=== PATIENT | male | born 1955 | race Caucasian/White ===

== ENCOUNTER 2021-09-03 20:53 | Emergency (ER) | payer MEDICARE, MEDICAID, SELFPAY ==
[2021-09-03] VITALS (18 sets, daily range): BP systolic 101–136; BP diastolic 62–105; PULSE 0–92; RESP 11–35; TEMP 36.8; O2SAT 71–100
--- NOTE | ~2021-09-03 | CT_ITS ---
EXAMINATION: CT brain wo con DATE: 09/03/2021 21:20 INDICATION: Slurred speech TECHNIQUE: Computed tomography (CT) of the head was performed without intravenous contrast. The mA wa s adjusted according to patient size. Iterative reconstruction technique was employed. Exam dose: 60 5.33 mGy-cm total exam DLP. COMPARISON: None FINDINGS: Prominent bilateral vertebral artery and bilateral carotid siphon internal carotid artery c alcifications. There is nonspecific diminished attenuation of the cerebral white matter, likely due to chronic small vessel ischemic changes. No intracranial mass lesion or hemorrhage or cerebrovascular accident is evident. No midline shift or mass effect. There is cerebellar and cerebral volume loss. No subdural or epidural hematoma is detected. No fracture or bone destruction of the cranial vault. Included paranasal sinuses and mastoid air cells are unremarkable. IMPRESSION: Cerebral atherosclerosis and chronic small vessel ischemic changes of the cerebral white matter Cerebellar and cerebral volume loss No acute intracranial finding Reviewed, dictated and finalized at [facility] Reviewed, dictated and finalized at [facility].
--- NOTE | 2021-09-03 21:46 | ED.GENADULT ---
HPI - General Adult General Chief complaint: Neuro Symptoms/Deficit Stated complaint: PT FEELS LIKE HAVING SLURRED SPEECH Time Seen by Provider: 09/03/21 21:03 Source: patient and RN notes reviewed History of Present Illness HPI narrative: 66-year-old male presented to the emergency department from local correction for evaluation of slurred speech. Patient states for the day he has had slurred speech. penitentiary did not feel that the patient had any altered speech. Patient denies any other numbness or weakness. Patient denies any headache. Patient denies any other complaints. Patient states he feels that his speech is slurred. Patient is edentulous. Related Data Allergies Allergy/AdvReac Type Severity Reaction Status Date / Time vancomycin Allergy Severe Sweating Verified 03/26/16 22:22 povidone Allergy Intermediate BETADINE Verified 03/26/16 22:22 OINTMENT CAUSES BLISTERS ON THE SKIN meperidine Allergy Unknown Verified 03/26/16 22:22 MEPERIDINE HCL Allergy Unknown Uncoded 03/26/16 22:22 Review of Systems Review of Systems: CONSTITUTIONAL: Denies fever, chills, or sweats. EYES: Denies visual changes, redness, or discharge. ENT: Denies rhinorrhea, congestion, sore throat, or otalgia. CARDIOVASCULAR: Denies chest pain, palpitations, or edema. RESPIRATORY: Denies cough or dyspnea. GASTROINTESTINAL: Denies abdominal pain, nausea, vomiting, or diarrhea. GENITOURINARY: Denies dysuria or hematuria. SKIN: Denies rash or itching. MUSCULOSKELETAL: Denies back pain, joint pain, or myalgia. NEUROLOGIC: Feels that his speech is slurred PSYCHIATRIC: Denies anxiety or depression. Exam Narrative: APPEARANCE: Well appearing, no pain, no distress, well-nourished. HEAD: normocephalic, atraumatic. EYES: PERRLA/EOMI, conjunctivae clear. NOSE: Normal no drainage EARS:TMS clear with good light reflex. NECK: Supple. No adenopathy, no masses. RESPIRATORY: Airway patent, respirations nonlabored. Clear to auscultation bilaterally, no rales, rhonchi, wheezing. CARDIOVASCULAR: Regular rate and rhythm without murmurs rubs or gallops. ABDOMINAL: Soft, nontender, nondistended, normal bowel sounds MUSCULOSKELETAL: Moves all extremities. Strength/ROM intact, No edema, No calf tenderness. NEURO: Alert. Cranial nerves II through XII intact. Good coordination. No slurring of speech. Normal cranial nerve exam. normal tongue exam. SKIN: Warm, dry. Normal Color. Course Course Emergency Course: patient feels his speech is slurred. NH did not appreciate a speech change. Patient has a normal neuro exam. Patient was updated on the results of his labs and imaging. Vital Signs Vital signs: Vital Signs Temperature 98.3 F 09/03/21 20:57 Pulse Rate 89 09/03/21 20:57 Respiratory Rate 16 09/03/21 20:57 Blood Pressure 112/68 09/03/21 20:57 Pulse Oximetry 100 09/03/21 20:57 Temperature 98.3 F 09/03/21 20:57 Pulse Rate 94 09/04/21 04:31 Respiratory Rate 14 09/04/21 04:31 Blood Pressure 130/95 H 09/04/21 04:31 Pulse Oximetry 100 09/04/21 02:00 Medical Decision Making Vital Signs Vital Signs: Vital Signs Temperature 98.3 F 09/03/21 20:57 Pulse Rate 89 09/03/21 20:57 Respiratory Rate 16 09/03/21 20:57 Blood Pressure 112/68 09/03/21 20:57 Pulse Oximetry 100 09/03/21 20:57 Temperature 98.3 F 09/03/21 20:57 Pulse Rate 94 09/04/21 04:31 Respiratory Rate 14 09/04/21 04:31 Blood Pressure 130/95 H 09/04/21 04:31 Pulse Oximetry 100 09/04/21 02:00 Lab Data Lab results reviewed: Yes I reviewed the patient's lab results. Result diagrams: 09/03/21 22:45 09/03/21 22:45 Labs: Lab Results 09/03/21 09/03/21 Range/Units 22:45 22:45 WBC 7.1 (4.5-10.0) K/mm3 RBC 4.34 L (4.6-6.20) M/mm3 Hgb 14.5 (14.0-18.0) g/dL Hct 43.2 (42.0-52.0) % MCV 99.5 (80-100) fl MCH 33.4 (26-34) pg MCHC 33.6 (32-36) g/dl RDW 15.0 H
[2021-09-03 22:55] LABS: Basophils Absolute Auto 0.1 K/mm3 (0.0-0.1); Basophils Percent Auto 0.8 % (0.2-1.2); Eosinophils Absolute Auto 0.2 K/mm3 (0-0.3); Eosinophils Percent Auto 2.3 % (0-4.4); Hematocrit 43.2 % (42.0-52.0); Hemoglobin 14.5 g/dL (14.0-18.0); Immature Granulocyte Absolute 0.02 K/mm3 (0.00-0.031); Immature Granulocyte Percent A 0.3 % (0-0.5); Lymphocytes Percent Auto 11.3 % (18.3-44.2); Mean Corpuscular HGB Conc 33.6 g/dl (32-36); Mean Corpuscular Hemoglobin 33.4 pg (26-34); Mean Corpuscular Volume 99.5 fl (80-100); Mean Platelet Volume 8.3 fl (7.4-10.4); Monocytes Absolute Auto 0.4 K/mm3 (0.1-0.6); Monocytes Percent Auto 5.5 % (2.6-8.5); Neutrophils Absolute Auto 5.7 K/mm3 (1.3-6.7); Neutrophils Percent Auto 79.8 % (45.5-73.1); Platelet Count Result 160 k/mm3 (150-375); Red Blood Count 4.34 M/mm3 (4.6-6.20); White Blood Count 7.1 K/mm3 (4.5-10.0)
[2021-09-03 23:03] LABS: Alanine Aminotransferase 22 U/L (4-50); Albumin Level 4.3 g/dL (3.5-5.1); Alkaline Phosphatase 108 U/L (38-126); Anion Gap 6 mmol/L (8-16); Aspartate Amino Transferase 36 U/L (17-59); Bilirubin,Total 1.2 mg/dL (0.2-1.3); Blood Urea Nitrogen 18 mg/dL (9-20); Calcium 9.4 mg/dL (8.4-10.2); Carbon Dioxide 34 mmol/L (22-30); Chloride 98 mmol/L (98-107); Estimated CRCL calculation 82 ml/min; Estimated Glomerular Filt Rate > 60; Glucose 113 mg/dL (65-110); Potassium 3.5 mmol/L (3.4-5.0); Sodium 138 mmol/L (137-145)
[2021-09-04] VITALS (16 sets, daily range): BP systolic 104–161; BP diastolic 64–106; PULSE 0–145; RESP 11–33; O2SAT 92–100
== END 2021-09-04 05:26 ==
PROVIDERS: Emergency Provider Emergency Medicine
DX: R47.1 Dysarthria and anarthria (principal); I67.2 Cerebral atherosclerosis
CPT/HCPCS: 36415; 70450; 80053; 85025; 99284

== ENCOUNTER 2021-09-16 14:20 | Inpatient (IN) | payer MEDICARE, MEDICAID, SELFPAY ==
[2021-09-16] VITALS (9 sets, daily range): BP systolic 103–121; BP diastolic 71–73; PULSE 74–91; RESP 16–24; TEMP 36.4–36.7; O2SAT 94–100
--- NOTE | 2021-09-16 14:26 | ECG_ITS ---
Measurements Intervals [place] Rate: 69 P: OK: 0 QRS: 29 QRSD: 166 T: 165 QT: 486 QTc: 522 Interpretive Statements POSSIBLE ELECTRONIC VENTRICULAR PACEMAKER WITH INHIBITION BASELINE ARTIFACT NO FURTHER INTERPRETATION POSSIBLE NO PREVIOUS ECG AVAILABLE FOR COMPARISON Electronically Signed On 09-16-2021 15:55:11 CDT by Saulo Velazquez M.D.
--- NOTE | 2021-09-16 14:26 | ED.GENADULT ---
HPI - General Adult General Chief complaint: Unspecified Stated complaint: medical evaluation Time Seen by Provider: 09/16/21 14:26 Source: patient and EMS Mode of arrival: EMS Limitations: no limitations History of Present Illness HPI narrative: Patient is a 66-year-old male brought in by EMS from home after a relative called elder protective services, so he can be readmitted back to the skilled nursing he was discharged less than 24 hours ago according to EMS. Patient was discharged from [facility] rehab due to family request yesterday, some financial or losing his apartment as the reason they were requesting him to be discharged per EMS. When family realized that they are not able to take care of him since he is not able to stand up or walk due to the recent fracture of his femur and generalized weakness from deconditioning, they called elderly protective services so he can be brought back to the skilled nursing. Patient states that he was in another hospital 6 weeks ago, and they dropped him while transferring from bed to commode and that is why he broke his femur 6 weeks ago. Patient states that he was not a candidate for surgery repair of his broken femur. Patient will need medical clearance prior to getting admitted back to [place]. Patient complaining of generalized weakness. Related Data Allergies Allergy/AdvReac Type Severity Reaction Status Date / Time vancomycin Allergy Severe Sweating Verified 03/26/16 22:22 povidone Allergy Intermediate BETADINE Verified 03/26/16 22:22 OINTMENT CAUSES BLISTERS ON THE SKIN meperidine Allergy Unknown Verified 03/26/16 22:22 MEPERIDINE HCL Allergy Unknown Uncoded 03/26/16 22:22 Review of Systems Review of Systems: All systems reviewed & are unremarkable except as noted in HPI and below Constitutional: Constitutional: Denies body ache(s), Denies chills, Denies excessive sweating, Denies fatigue, Denies fever(s), Denies headache(s), Denies lethargy, Denies malaise, Reports weakness (Generalized) and Denies weight loss Eyes: Eyes: Denies blurry vision, Denies change in vision and Denies loss of vision ENT: Denies dizziness, Denies ear discharge, Denies headache(s), Denies lip swelling, Denies epistaxis, Denies nasal congestion, Denies neck pain, Denies throat swelling and Denies tongue swelling Cardiovascular: Cardiovascular: Denies chest pain, Denies chest pain at rest, Denies chest pain with activity, Denies diaphoresis, Denies rapid heart rate, Denies edema, Denies irregular heart rhythm, Denies lightheadedness, Denies palpitations, Denies dyspnea and Denies dyspnea on exertion Respiratory: Respiratory: Denies chest congestion, Denies cough, Denies hemoptysis, Denies dyspnea and Denies dyspnea on exertion Gastrointestinal: Gastrointestinal: Denies abdominal pain, Denies melena, Denies hematochezia, Denies diarrhea, Denies nausea, Denies vomiting and Denies hematemesis Musculoskeletal: Musculoskeletal: Reports limited range of motion Comments: Right lower extremity pain Neurologic: Denies Abnormal speech present, Denies abnormal gait, Denies confusion, Denies dizziness, Denies headache(s), Denies focal weakness, Denies loss of vision, Denies numbness, Denies Other visual disturbances, Denies Sensory deficit (Neuro) and Denies weakness Psychiatric: Psychiatric: Denies confusion, Denies depression, Denies auditory hallucinations, Denies homicidal ideation and Denies suicidal ideation Endocrine: Endocrine: Denies cold intolerance, Denies excessive sweating, Denies fatigue, Denies heat intolerance and Denies palpitations Hematologic/Lymphatic: Hematologic/Lymphatic: Denies easy bleeding and Denies easy bruising Allergic/Immunologic: Allergic/Immunologic: Denies lip swelling, Denies throat swelling and Denies tongue swelling PMFSH Comments Past medical history: Hypertension, atrial fib, multiple hip surgeries Family history: Unknown Social history: Non-smoker and
--- NOTE | 2021-09-16 14:27 | PC.NURSE ---
Care coordination made aware of pt per Dr. Powell request.
[2021-09-16 14:49] LABS: Basophils Absolute Auto 0.1 K/mm3 (0.0-0.1); Basophils Percent Auto 0.6 % (0.2-1.2); Eosinophils Absolute Auto 0.2 K/mm3 (0-0.3); Eosinophils Percent Auto 2.3 % (0-4.4); Hematocrit 36.4 % (42.0-52.0); Hemoglobin 12.5 g/dL (14.0-18.0); Immature Granulocyte Absolute 0.03 K/mm3 (0.00-0.031); Immature Granulocyte Percent A 0.3 % (0-0.5); Lymphocytes Absolute Auto 0.82 K/mm3 (0.9-3.2); Lymphocytes Percent Auto 8.8 % (18.3-44.2); Mean Corpuscular HGB Conc 34.3 g/dl (32-36); Mean Corpuscular Hemoglobin 32.3 pg (26-34); Mean Corpuscular Volume 94.1 fl (80-100); Mean Platelet Volume 8.3 fl (7.4-10.4); Monocytes Absolute Auto 0.4 K/mm3 (0.1-0.6); Monocytes Percent Auto 4.4 % (2.6-8.5); Neutrophils Absolute Auto 7.8 K/mm3 (1.3-6.7); Neutrophils Percent Auto 83.6 % (45.5-73.1); Platelet Count Result 212 k/mm3 (150-375); Red Blood Count 3.87 M/mm3 (4.6-6.20); Red Cell Distribution Width 13.8 % (11.5-14.5); White Blood Count 9.4 K/mm3 (4.5-10.0)
[2021-09-16] MEDS: LACTATED RINGERS 1,000 ML 999 ML IV CONT (14:50)
[2021-09-16 14:53] LABS: Add Urine Microscopic? YES; Appearance Urine Clear (Clear); Bilirubin Urine Negative (Negative); Blood Urine Negative (Negative); Color Urine Yellow (Yellow); Glucose Urine UA Negative (Negative); Ketones Urine Trace mg/dL (Negative); Leukocyte Esterase Ur Negative LEU/UL (Negative); Mucus Urine Rare /lpf; Nitrate Urine Negative (Negative); Protein Urine Negative (Negative); RBC Urine 0-2 /hpf (0-2); Specific Grav Ur 1.012 (1.001-1.035); Squamous Epithelial Cell Urine Rare /hpf (Few); Urobilinogen Urine Negative mg/dL (<2.0)
[2021-09-16 15:02] LABS: Anion Gap 11 mmol/L (8-16); Blood Urea Nitrogen 17 mg/dL (9-20); Calcium 8.4 mg/dL (8.4-10.2); Carbon Dioxide 32 mmol/L (22-30); Chloride 90 mmol/L (98-107); Estimated CRCL calculation 66 ml/min; Estimated Glomerular Filt Rate > 60; Glucose 129 mg/dL (65-110); Potassium 2.2 mmol/L (3.4-5.0); Sodium 133 mmol/L (137-145)
--- NOTE | 2021-09-16 15:20 | PC.NURSE ---
Care Coordination in room at this time discussing POC w/ pt.
--- NOTE | 2021-09-16 15:20 | PC.NURSE ---
Pt out of room and states has ride coming, wishes to sign out AMA. Told pt he must sign paperwork and IV needs to be removed prior to his leaving. Pt agreed and approached desk, this RN states to go back to room for IV removal. Pt ambulated back to room in no distress.
[2021-09-16] MEDS: POTASSIUM CHLORIDE 20 MEQ PACKET (FOR LIQUID) 40 MEQ PO (15:34)
--- NOTE | 2021-09-16 15:55 | PCCCNOTE ---
Called to ED by Dr. Powell for possible placement. Pt has MCR and Medicaid. Per pt: pt at [facility] for sepsis and sustained broken femur at hospital. Sent to [facility] on either August 31 or . Pt left on September 15 due to financial dispute on payment going forward. Pt found at home in soiled clothes brought to the hospital to be evaluated. Pt found to have low potassium and will be admitted. I spoke with Lona at [facility] and she stated that she tried to explain medicaid and medicare payment rules to pt and daughter; but they either did not understand or disagreed with the rules. Pt's daughter stated that she could take care of pt. Lona stated [facility] would be willing to take pt back if financial situation can be cleared up with everybody involved. Pt stated he would like to look into other SNF if possible and may be willing to give up check for 1 month then reevaluate. This did not seem set in stone.
[2021-09-16] MEDS: KCL 20 MEQ/D5/0.45% SOD CHL 1,000 ML 125 ML IV CONT (17:04)
--- NOTE | 2021-09-16 17:09 | PC.NURSE ---
Called dietary and ordered dinner tray for pt at this time.
--- NOTE | 2021-09-16 17:39 | PM.IMHP ---
H&P: HPI History of Present Illness Date/Time: Patient was placed observation status for expected length of stay less than 23 hours for management, will plan to re-evaluate tomorrow for improvement. 09/16/21 17:39 Chief Complaint: Medical evaluation Narrative: Mr. Dockery is a 66-year-old gentleman who was brought to the emergency room via EMS from his house after relatives I called other protective Services, ?so he could be readmitted back to the [place] [facility] he was discharged from approximately 24 hours ago?. The above statement was according to EMS. Per emergency room records patient was discharged from [facility] due to family's request yesterday. Per the emergency room records patient's family stated the patient was having some financial issues and he may be losing his apartment and so they requested he be discharged from extended care facility. Unfortunately the family realized they were not able to care for the patient since he cannot stand up or walk on his own secondary to a recent distal right femur fracture and generalized deconditioning they called elderly protective Services so he could go back to the [place] [facility]. Patient states ?a few weeks ago? he was at [facility] for MRSA sepsis and at that time something occurred and he had a fracture to his right distal femur. Patient states the femur fracture did occur at the hospital. Patient states that he has had multiple hip surgeries to bilateral hips and he has not been able to walk for quite some time. Patient states he does have occasional diarrhea and he has had some since being placed on antibiotics while at [facility]. Patient denies any diarrhea today. Patient denies any chest pain, shortness a breath, lightheadedness, dizziness, syncopal, or near syncopal episodes. Patient states he just has generalized weakness and inability to walk secondary to weakness to bilateral lower extremities. Upon evaluation in emergency room patient was noted to have a potassium of 2.2 and it was decided to keep patient overnight for replacement of his electrolytes and to assist with placement back to [facility] tomorrow possibly. Patient states he has known history of atrial fibrillation, hypertension, MRSA, sarcoidosis of the lungs, BPH, C difficile, permanent pacemaker, hernia repair, left total hip replacement, and multiple right hip surgeries. Review of Systems Review of Systems: A 12 point review of systems was completed patient all pertinent positive and negative per HPI the remainder are unremarkable. [facility] Past Medical History Medical History (Updated 09/16/21 @ 17:52 by Magnolia Canseco APRN) Atrial fibrillation Benign prostatic hyperplasia Clostridium difficile infection Hypertension MRSA bacteremia Sarcoidosis of lung Surgical History Surgical History (Updated 09/16/21 @ 17:49 by Magnolia Canseco APRN) History of hernia repair History of hip surgery Patient states multiple hip surgeries to the right hip History of total left hip replacement Pacemaker Social History Social History (Updated 09/16/21 @ 17:49 by Magnolia Canseco APRN) Smoking status: Never smoker Substance use: never Meds Home Medications and Allergies Allergies Allergy/AdvReac Type Severity Reaction Status Date / Time vancomycin Allergy Severe Sweating Verified 03/26/16 22:22 povidone Allergy Intermediate BETADINE Verified 03/26/16 22:22 OINTMENT CAUSES BLISTERS ON THE SKIN meperidine Allergy Unknown Verified 03/26/16 22:22 MEPERIDINE HCL Allergy Unknown Uncoded 03/26/16 22:22 Vital Signs Vital Signs - 24 hr 09/16/21 14:18 09/16/21 14:23 09/16/21 15:35 Temperature 36.7 C Pulse Rate 87 88 86 Respiratory Rate 20 24 H Blood Pressure 121/71 Pulse Oximetry 97 100 09/16/21 16:55 Temperature Pulse Rate 74 Respiratory Rate 16 Blood Pressure 113/73 Pulse Oximetry 98 Exam Narrative: Constitutional
[2021-09-16 19:27] LABS: Magnesium 1.5 mg/dL (1.6-2.3)
[2021-09-16 19:32] LABS: Anion Gap 8 mmol/L (8-16); Blood Urea Nitrogen 15 mg/dL (9-20); Calcium 8.2 mg/dL (8.4-10.2); Carbon Dioxide 33 mmol/L (22-30); Chloride 91 mmol/L (98-107); Estimated CRCL calculation 66 ml/min; Estimated Glomerular Filt Rate > 60; Glucose 163 mg/dL (65-110); Potassium 2.6 mmol/L (3.4-5.0); Sodium 132 mmol/L (137-145)
[2021-09-16] MEDS: POTASSIUM CHLORIDE 20 MEQ TABLET 40 MEQ PO (20:46)
[2021-09-16] MEDS: MAGNESIUM SULF 2 GM/WATER 50ML 2 GM/50 ML BAG IVPB (20:48)
[2021-09-16] MEDS: diphenhydrAMINE HCl CAP 25 MG CAPSULE PO (21:14)
[2021-09-16] MEDS: ACETAMINOPHEN 325 MG TABLET 650 MG PO (21:14)
[2021-09-17] VITALS (8 sets, daily range): BP systolic 96–122; BP diastolic 56–62; PULSE 64–92; RESP 16–20; TEMP 36.1–37.2; O2SAT 99–100; BMI 31.3
--- NOTE | 2021-09-17 00:28 | PCRCNOTE ---
Pt states that he is supposed to wear CPAP at home but currently does not due to the recall. Pt did not have his sleep study done here and does not know his settings. Pt placed on auto-titrating CPAP of 5-20 on RA.
[2021-09-17] MEDS: KCL 20MEQ/0.9% SOD CHL 1,000 ML 100 ML IV CONT (00:40)
[2021-09-17] MEDS: ACETAMINOPHEN 325 MG TABLET 650 MG PO (01:56)
[2021-09-17] MEDS: diphenhydrAMINE HCl CAP 25 MG CAPSULE PO (01:56)
[2021-09-17 05:20] LABS: Basophils Absolute Auto 0.1 K/mm3 (0.0-0.1); Basophils Percent Auto 0.9 % (0.2-1.2); Eosinophils Absolute Auto 0.4 K/mm3 (0-0.3); Eosinophils Percent Auto 4.7 % (0-4.4); Hematocrit 33.1 % (42.0-52.0); Hemoglobin 11.1 g/dL (14.0-18.0); Immature Granulocyte Absolute 0.02 K/mm3 (0.00-0.031); Immature Granulocyte Percent A 0.3 % (0-0.5); Lymphocytes Absolute Auto 0.49 K/mm3 (0.9-3.2); Lymphocytes Percent Auto 6.2 % (18.3-44.2); Mean Corpuscular HGB Conc 33.5 g/dl (32-36); Mean Corpuscular Hemoglobin 32.6 pg (26-34); Mean Corpuscular Volume 97.1 fl (80-100); Mean Platelet Volume 8.4 fl (7.4-10.4); Monocytes Absolute Auto 0.4 K/mm3 (0.1-0.6); Monocytes Percent Auto 5.2 % (2.6-8.5); Neutrophils Absolute Auto 6.6 K/mm3 (1.3-6.7); Neutrophils Percent Auto 82.7 % (45.5-73.1); Platelet Count Result 190 k/mm3 (150-375); Red Blood Count 3.41 M/mm3 (4.6-6.20); Red Cell Distribution Width 13.8 % (11.5-14.5); White Blood Count 7.9 K/mm3 (4.5-10.0)
[2021-09-17 05:35] LABS: Anion Gap 9 mmol/L (8-16); Blood Urea Nitrogen 16 mg/dL (9-20); Calcium 8.4 mg/dL (8.4-10.2); Carbon Dioxide 32 mmol/L (22-30); Chloride 92 mmol/L (98-107); Estimated CRCL calculation 53 ml/min; Estimated Glomerular Filt Rate 50; Glucose 106 mg/dL (65-110); Magnesium 1.9 mg/dL (1.6-2.3); Potassium 2.8 mmol/L (3.4-5.0); Sodium 133 mmol/L (137-145)
[2021-09-17] MEDS: MORPHINE SULFATE (*CRX) 15 MG TAB IR 30 MG PO (05:45)
[2021-09-17] MEDS: POTASSIUM CHLORIDE INJ 40 MEQ in SODIUM CHLORIDE 0.9% IV 500 ML 130 MEQ IVPB ×2 (06:07→10:00)
[2021-09-17] MEDS: LIDOCAINE HCL 4% SOLN 50 ML BTL 1 APPLIC TOPICAL (06:58)
[2021-09-17] MEDS: GENTAMICIN SULFATE 0.1% OINT 15 GM TUBE 1 APPLIC TOPICAL (06:58)
[2021-09-17] MEDS: ENOXAPARIN 40 MG/0.4 ML SYRINGE SUB-Q (09:02)
[2021-09-17] MEDS: MORPHINE SULFATE (*CRX) 60 MG TABCR PO ×2 (09:02→21:14)
[2021-09-17] MEDS: GABAPENTIN 300 MG CAPSULE PO ×2 (09:02→21:15)
[2021-09-17] MEDS: TIMOLOL MALEATE 0.5% OP SOLN 5 ML BOTTLE 2 DROP EACH EYE ×2 (09:03→17:10)
[2021-09-17] MEDS: BRIMONIDINE TARTRATE 0.2% OP SOLN 5 ML BTL 2 DROP EACH EYE ×2 (09:03→17:10)
--- NOTE | 2021-09-17 10:43 | PM.IMPN ---
Progress Note: A&P Assessment and Plan (1) Acute hypokalemia: Code(s): E87.6 - Hypokalemia Status: Acute Assessment and Plan: Potassium still 2.4 this morning. Ordered 80mEq and will recheck in the afternoon. (2) Generalized weakness: Code(s): R53.1 - Weakness Status: Acute Assessment and Plan: Case management has been consulted. Unsure how much therapy would be helpful as he has a femur fracture and cannot walk. (3) Wound of lower extremity: Code(s): S81.809A - Unspecified open wound, unspecified lower leg, initial encounter Status: Acute Assessment and Plan: Appreciate recommendations from wound care. (4) Diarrhea: Code(s): R19.7 - Diarrhea, unspecified Status: Acute Assessment and Plan: Will send stool studies. Subjective Date/time seen: Date of Service 09/17/21 0900 Patient denies CP or palpitations. He says he does feel a little more SOB than usual. Says adult protective services is coming to see him this morning. Also says his last mcc didn't bathe him until he threatened to leave. Review of Systems Cardiovascular: Cardiovascular: Denies chest pain, Denies lightheadedness and Denies palpitations Exam Narrative: Constitutional: Patient is well-nourished in no acute distress. Patient is alert and oriented x3 HEENT: Moist mucous membranes. No scleral icterus. No lymphadenopathy. Patient does wear an eye patch to his right eye Neck: No carotid bruits noted no JVD noted Lungs: Lung sounds are clear to auscultation bilaterally. No accessory muscle use. No rhonchi, rales, or wheezes noted. Cardiovascular: Apical pulse is regular rate and rhythm. S1-S2 noted, no S3 or S4 noted. No gallops, murmurs, or rubs noted. Abdomen: Soft, round, and nontender. No palpable masses. Extremities: Large amount of swelling noted to patient's right thigh and dressing noted to patient's right lower extremity. Left lower extremity has blackened areas to his reid and wounds. Skin: Dressing to right lower extremity is dry intact with no drainage noted. Musculoskeletal: Patient has generalized weakness. Neurological: No focal neurological deficits. Cranial nerves II-XII grossly intact. Psychiatric: Cooperative, appropriate mood, and affect Objective Data Vital Signs Vital Signs: Vital Signs - 24 hr 09/16/21 20:00 09/16/21 22:00 09/16/21 23:35 Temperature 97.6 F Pulse Rate 78 79 Respiratory Rate 17 16 Blood Pressure 104/71 Pulse Oximetry 95 94 98 09/16/21 23:40 09/17/21 00:00 09/17/21 04:00 Temperature Pulse Rate 83 78 78 Respiratory Rate Blood Pressure Pulse Oximetry 97 09/17/21 06:00 09/17/21 08:00 09/17/21 12:00 Temperature 97.0 F L Pulse Rate 72 92 78 Respiratory Rate 20 Blood Pressure 105/58 L Pulse Oximetry 99 09/17/21 14:20 09/17/21 16:00 Temperature 99.0 F Pulse Rate 77 82 Respiratory Rate 18 Blood Pressure 122/62 Pulse Oximetry 100 Intake/Output Intake/Output: Intake & Output 09/14/21 09/15/21 09/16/21 09/17/21 23:59 23:59 23:59 23:59 Intake Total 1000 3198 Output Total 500 Balance 1000 2698 Meds/Results Medications: Active Medications Generic Name Dose Route Start Last Admin Trade Name Freq PRN Reason Stop Dose Admin Acetaminophen 650 mg 09/17/21 15:30 Acetaminophen 325 Mg Tablet PO Q4H PRN Mild Pain (1-3) or Fever Albuterol 2.5 mg 09/17/21 16:00 Albuterol Sulfate Neb 2.5 Mg/0.5 Ml Inh INHALATION QIDRT QIAN Alprazolam 0.25 mg 09/17/21 07:40 Alprazolam (*Crx) 0.25 Mg Tablet PO Q8HR PRN Anxiety Apixaban 2.5 mg 09/17/21 17:00 09/17/21 17:10 Apixaban 2.5 Mg Tablet PO 2.5 mg BID QIAN Administration Aripiprazole 2 mg 09/17/21 21:00 Aripiprazole 2 Mg Tablet PO HS QIAN Aspirin 81 mg 09/18/21 09:00 Aspirin 81 Mg Enteric Tablet PO DAILY QIAN Benzonatate 100 mg
[2021-09-17] MEDS: SILVERGEL (ELTA) 45 ML 1 APPLIC TOPICAL (14:55)
[2021-09-17 15:06] LABS: Glucose Point of Care 107 mg/dl (65-105)
[2021-09-17 15:57] LABS: Potassium 3.3 mmol/L (3.4-5.0)
[2021-09-17] MEDS: APIXABAN 2.5 MG TABLET PO (17:10)
[2021-09-17] MEDS: THERAPEUTIC MULTIVITAMINS/MINERALS TAB (*BKC) 1 TABLET PO (17:10)
[2021-09-17] MEDS: POTASSIUM CHLORIDE 20 MEQ TABLET 40 MEQ PO (18:20)
[2021-09-17 20:01] LABS: Toxigenic C. Diff POSITIVE (NEGATIVE)
--- NOTE | 2021-09-17 20:21 | PCRCNOTE ---
Patient refused nebulizer treatment. States he don't need that. I'm fine. I don't need the nasal spray either.
[2021-09-17] MEDS: rOPINIRole HCL 1 MG TABLET PO (21:15)
[2021-09-17] MEDS: ARIPiprazole 2 MG TABLET PO (21:29)
[2021-09-18] VITALS (10 sets, daily range): BP systolic 92–100; BP diastolic 57–60; PULSE 72–109; RESP 16–18; TEMP 36.5–37.2; O2SAT 95–98
--- NOTE | 2021-09-18 00:07 | PCRCNOTE ---
Patient refuses CPAP tonight. States he doesn't want to wear it because it doesn't fit right. I told him we could try different masks but he refused.
[2021-09-18] MEDS: MORPHINE SULFATE (*CRX) 15 MG TAB IR 30 MG PO ×2 (02:03→15:45)
[2021-09-18] MEDS: metroNIDAZOLE 500 MG/ISO 100ML 500 MG/100 ML BAG 100 MG IVPB (02:45)
[2021-09-18 05:27] LABS: Basophils Percent Auto 0.7 % (0.2-1.2); Eosinophils Absolute Auto 0.3 K/mm3 (0-0.3); Eosinophils Percent Auto 5.2 % (0-4.4); Hematocrit 28.4 % (42.0-52.0); Hemoglobin 9.5 g/dL (14.0-18.0); Immature Granulocyte Absolute 0.02 K/mm3 (0.00-0.031); Immature Granulocyte Percent A 0.3 % (0-0.5); Lymphocytes Absolute Auto 0.76 K/mm3 (0.9-3.2); Lymphocytes Percent Auto 12.8 % (18.3-44.2); Mean Corpuscular HGB Conc 33.5 g/dl (32-36); Mean Corpuscular Hemoglobin 32.9 pg (26-34); Mean Corpuscular Volume 98.3 fl (80-100); Mean Platelet Volume 8.3 fl (7.4-10.4); Monocytes Absolute Auto 0.4 K/mm3 (0.1-0.6); Monocytes Percent Auto 7.1 % (2.6-8.5); Neutrophils Absolute Auto 4.4 K/mm3 (1.3-6.7); Neutrophils Percent Auto 73.9 % (45.5-73.1); Platelet Count Result 152 k/mm3 (150-375); Red Blood Count 2.89 M/mm3 (4.6-6.20); Red Cell Distribution Width 14.2 % (11.5-14.5); White Blood Count 5.9 K/mm3 (4.5-10.0)
[2021-09-18 05:42] LABS: Anion Gap 4 mmol/L (8-16); Blood Urea Nitrogen 12 mg/dL (9-20); Calcium 7.7 mg/dL (8.4-10.2); Carbon Dioxide 29 mmol/L (22-30); Chloride 98 mmol/L (98-107); Estimated CRCL calculation 85 ml/min; Estimated Glomerular Filt Rate > 60; Glucose 95 mg/dL (65-110); Potassium 2.8 mmol/L (3.4-5.0); Sodium 131 mmol/L (137-145)
--- NOTE | 2021-09-18 05:51 | PC.NURSE ---
Critical lab results called to Dr Thomas for a potassium of 2.8. Verbal orders given to hold the 0600 Lasix and administer the scheduled morning 30 meq of potassium at this time
[2021-09-18] MEDS: POTASSIUM CHLORIDE INJ 40 MEQ in SODIUM CHLORIDE 0.9% IV 500 ML 130 MEQ IVPB (07:50)
[2021-09-18] MEDS: POTASSIUM CHLORIDE 10 MEQ TABLET.ER 30 MEQ PO (07:54)
[2021-09-18] MEDS: GABAPENTIN 300 MG CAPSULE PO ×2 (09:21→21:04)
[2021-09-18] MEDS: APIXABAN 2.5 MG TABLET PO ×2 (09:21→16:26)
[2021-09-18] MEDS: ASPIRIN 81 MG ENTERIC TABLET PO (09:21)
[2021-09-18] MEDS: METOPROLOL SUCCINATE EXT REL 12.5 MG TABCR PO (09:21)
[2021-09-18] MEDS: THERAPEUTIC MULTIVITAMINS/MINERALS TAB (*BKC) 1 TABLET PO ×2 (09:21→16:26)
[2021-09-18] MEDS: LORATADINE 10 MG TABLET PO (09:21)
[2021-09-18] MEDS: BENZONATATE 100 MG CAPSULE PO (09:21)
[2021-09-18] MEDS: BRIMONIDINE TARTRATE 0.2% OP SOLN 5 ML BTL 2 DROP EACH EYE ×2 (09:21→17:11)
[2021-09-18] MEDS: CHOLECALCIFEROL 1,000 UNITS TABLET 5000 UNITS PO (09:21)
[2021-09-18] MEDS: FLUTICASONE PROPIONATE 0.05% NA SPR 16 GM BTL (*BKC) 1 SPRAY NASAL (09:22)
[2021-09-18] MEDS: TIMOLOL MALEATE 0.5% OP SOLN 5 ML BOTTLE 2 DROP EACH EYE ×2 (09:22→16:47)
--- NOTE | 2021-09-18 10:02 | PM.IMPN ---
Progress Note: A&P Assessment and Plan (1) Acute hypokalemia: Code(s): E87.6 - Hypokalemia Status: Acute Assessment and Plan: - Potassium this AM is 2.8. 40 mEq IV and 30 mEq po ordered. - Trend Metabolic panel for recheck. - Continue to monitor on telemetry. (2) Generalized weakness: Code(s): R53.1 - Weakness Status: Acute Assessment and Plan: - Case management has been consulted. Unsure how much therapy would be helpful as he has a femur fracture and cannot walk. (3) Wound of lower extremity: Code(s): S81.809A - Unspecified open wound, unspecified lower leg, initial encounter Status: Acute Assessment and Plan: - Appreciate recommendations from wound care. (4) Diarrhea: Qualifiers: Diarrhea type: infectious Qualified Code(s): A09 - Infectious gastroenteritis and colitis, unspecified Code(s): R19.7 - Diarrhea, unspecified Status: Acute Assessment and Plan: - + C-diff Colitis. - Stop Flagyl and start Dificid 200 mg po Q12 hours. - Replace Potassium. Time Spent With Patient Time with patient: 15 - 25 minutes Subjective Date/time seen: 09/18/21 0830 This pt. is examined at the bedside sine he was admitted with his diarrhea, hypokalemia and overall weakness. His C-diff returned positive for acute infection. He was initially started on Flagyl Q8 hours and we are now transitioning to Dificid 200 mg Q12 hours. In addition, his Potassium remains low today at 2.8. He has no new complaints and no new symptoms, especially of CP, dyspnea, N/V, or any urinary complaints. Review of Systems Review of Systems: All systems reviewed & are unremarkable except as noted in HPI and below Exam Narrative: Constitutional: Patient is well-nourished in no acute distress. Patient is alert and oriented x3 HEENT: Moist mucous membranes. No scleral icterus. No lymphadenopathy. Patient does wear an eye patch to his right eye Neck: No carotid bruits noted no JVD noted Lungs: Lung sounds are clear to auscultation bilaterally. No accessory muscle use. No rhonchi, rales, or wheezes noted. Cardiovascular: Apical pulse is regular rate and rhythm. S1-S2 noted, no S3 or S4 noted. No gallops, murmurs, or rubs noted. Abdomen: Soft, round, and nontender. No palpable masses. Extremities: Large amount of swelling noted to patient's right thigh and dressing noted to patient's right lower extremity. Left lower extremity has blackened areas to his reid and wounds. Skin: Dressing to right lower extremity is dry intact with no drainage noted. Musculoskeletal: Patient has generalized weakness. Neurological: No focal neurological deficits. Cranial nerves II-XII grossly intact. Psychiatric: Cooperative, appropriate mood, and affect Objective Data Vital Signs Vital Signs: Vital Signs - 24 hr 09/17/21 12:00 09/17/21 14:20 09/17/21 16:00 Temperature 99.0 F Pulse Rate 78 77 82 Respiratory Rate 18 Blood Pressure 122/62 Pulse Oximetry 100 09/17/21 22:00 09/18/21 00:00 09/18/21 04:00 Temperature 98.4 F Pulse Rate 64 76 72 Respiratory Rate 16 Blood Pressure 96/56 L Pulse Oximetry 99 09/18/21 06:00 09/18/21 08:37 Temperature 97.7 F Pulse Rate 75 Respiratory Rate 16 Blood Pressure 98/60 L Pulse Oximetry 98 96 Intake/Output Intake/Output: Intake & Output 09/15/21 09/16/21 09/17/21 09/18/21 23:59 23:59 23:59 23:59 Intake Total 1000 3198 1130 Output Total 500 800 Balance 1000 2698 330 Meds/Results Medications: Active Medications Generic Name Dose Route Start Last Admin Trade Name Freq PRN Reason Stop Dose Admin Acetaminophen 650 mg 09/17/21 15:30 Acetaminophen 325 Mg Tablet PO Q4H PRN Mild Pain (1-3) or Fever Albuterol 2.5 mg 09/18/21 08:22 Albuterol Sulfate Neb 2.5 Mg/0.5 Ml Inh INHALATION Q6HRT PRN Shortness Of Breath Alprazolam 0.25 mg 09/17/21 07:40 Alprazolam
[2021-09-18] MEDS: SPIRONOLACTONE 25 MG TABLET PO (10:14)
[2021-09-18] MEDS: VENLAFAXINE HCL XR 75 MG CAP.ER.24H 150 MG PO (10:14)
[2021-09-18] MEDS: SILVERGEL (ELTA) 45 ML 1 APPLIC TOPICAL (10:14)
[2021-09-18] MEDS: MORPHINE SULFATE (*CRX) 60 MG TABCR PO ×2 (10:14→21:04)
[2021-09-18] MEDS: FIDAXOMICIN 200 MG TABLET PO ×2 (11:17→21:03)
[2021-09-18 12:24] LABS: Anion Gap 5 mmol/L (8-16); Blood Urea Nitrogen 11 mg/dL (9-20); Carbon Dioxide 29 mmol/L (22-30); Chloride 99 mmol/L (98-107); Estimated CRCL calculation 94 ml/min; Estimated Glomerular Filt Rate > 60; Glucose 112 mg/dL (65-110); Potassium 3.5 mmol/L (3.4-5.0); Sodium 133 mmol/L (137-145)
[2021-09-18] MEDS: ARIPiprazole 2 MG TABLET PO (21:03)
[2021-09-18] MEDS: rOPINIRole HCL 1 MG TABLET PO (21:05)
[2021-09-19] VITALS (10 sets, daily range): BP systolic 92–110; BP diastolic 58–71; PULSE 73–80; RESP 14–18; TEMP 36.3–37.2; O2SAT 96–99
[2021-09-19] MEDS: FUROSEMIDE 40 MG TABLET PO (05:16)
[2021-09-19 05:33] LABS: Basophils Absolute Auto 0.1 K/mm3 (0.0-0.1); Basophils Percent Auto 1.3 % (0.2-1.2); Eosinophils Absolute Auto 0.3 K/mm3 (0-0.3); Eosinophils Percent Auto 8.2 % (0-4.4); Hematocrit 29.8 % (42.0-52.0); Hemoglobin 9.7 g/dL (14.0-18.0); Immature Granulocyte Absolute 0.01 K/mm3 (0.00-0.031); Immature Granulocyte Percent A 0.3 % (0-0.5); Lymphocytes Absolute Auto 0.62 K/mm3 (0.9-3.2); Lymphocytes Percent Auto 16.5 % (18.3-44.2); Mean Corpuscular HGB Conc 32.6 g/dl (32-36); Mean Corpuscular Hemoglobin 33.1 pg (26-34); Mean Corpuscular Volume 101.7 fl (80-100); Mean Platelet Volume 8.6 fl (7.4-10.4); Monocytes Absolute Auto 0.4 K/mm3 (0.1-0.6); Monocytes Percent Auto 9.6 % (2.6-8.5); Neutrophils Absolute Auto 2.4 K/mm3 (1.3-6.7); Neutrophils Percent Auto 64.1 % (45.5-73.1); Platelet Count Result 132 k/mm3 (150-375); Red Blood Count 2.93 M/mm3 (4.6-6.20); Red Cell Distribution Width 14.3 % (11.5-14.5); White Blood Count 3.8 K/mm3 (4.5-10.0)
[2021-09-19 05:45] LABS: Alanine Aminotransferase 8 U/L (4-50); Albumin Level 2.7 g/dL (3.5-5.1); Alkaline Phosphatase 54 U/L (38-126); Anion Gap 4 mmol/L (8-16); Aspartate Amino Transferase 21 U/L (17-59); Bilirubin,Total 0.7 mg/dL (0.2-1.3); Blood Urea Nitrogen 16 mg/dL (9-20); Carbon Dioxide 27 mmol/L (22-30); Chloride 102 mmol/L (98-107); Estimated CRCL calculation 94 ml/min; Estimated Glomerular Filt Rate > 60; Glucose 90 mg/dL (65-110); Magnesium 1.7 mg/dL (1.6-2.3); Potassium 3.4 mmol/L (3.4-5.0); Sodium 133 mmol/L (137-145)
[2021-09-19] MEDS: MORPHINE SULFATE (*CRX) 15 MG TAB IR 30 MG PO ×2 (07:05→12:59)
[2021-09-19] MEDS: BRIMONIDINE TARTRATE 0.2% OP SOLN 5 ML BTL 2 DROP EACH EYE ×2 (08:32→16:53)
[2021-09-19] MEDS: ASPIRIN 81 MG ENTERIC TABLET PO (08:33)
[2021-09-19] MEDS: POTASSIUM CHLORIDE 10 MEQ TABLET.ER 30 MEQ PO (08:33)
[2021-09-19] MEDS: FIDAXOMICIN 200 MG TABLET PO ×2 (08:33→20:21)
[2021-09-19] MEDS: CHOLECALCIFEROL 1,000 UNITS TABLET 5000 UNITS PO (08:33)
[2021-09-19] MEDS: BENZONATATE 100 MG CAPSULE PO (08:33)
[2021-09-19] MEDS: THERAPEUTIC MULTIVITAMINS/MINERALS TAB (*BKC) 1 TABLET PO ×2 (08:33→16:52)
[2021-09-19] MEDS: APIXABAN 2.5 MG TABLET PO ×2 (08:33→16:52)
[2021-09-19] MEDS: FERROUS SULFATE 324 MG TABLET PO (08:34)
[2021-09-19] MEDS: VENLAFAXINE HCL XR 75 MG CAP.ER.24H 150 MG PO (08:34)
[2021-09-19] MEDS: SPIRONOLACTONE 25 MG TABLET PO (08:34)
[2021-09-19] MEDS: METOPROLOL SUCCINATE EXT REL 12.5 MG TABCR PO (08:34)
[2021-09-19] MEDS: GABAPENTIN 300 MG CAPSULE PO ×2 (08:34→20:21)
[2021-09-19] MEDS: LORATADINE 10 MG TABLET PO (08:34)
[2021-09-19] MEDS: TIMOLOL MALEATE 0.5% OP SOLN 5 ML BOTTLE 2 DROP EACH EYE ×2 (08:37→16:52)
[2021-09-19] MEDS: SILVERGEL (ELTA) 45 ML 1 APPLIC TOPICAL (08:38)
[2021-09-19] MEDS: MORPHINE SULFATE (*CRX) 60 MG TABCR PO ×2 (08:52→20:25)
--- NOTE | 2021-09-19 10:19 | PM.IMPN ---
Progress Note: A&P Assessment and Plan (1) Acute hypokalemia: Code(s): E87.6 - Hypokalemia Status: Acute Assessment and Plan: - Potassium this AM is 3.4. This is corrected as compared to 2.8 yesterday. - Trend Metabolic panel for recheck. - Continue to monitor on telemetry. (2) Generalized weakness: Code(s): R53.1 - Weakness Status: Acute Assessment and Plan: - Case management has been consulted. Unsure how much therapy would be helpful as he has a femur fracture and cannot walk. - Suspicion this will only worsen as pt. is considered bedbound. Awaiting the OK to discharge to SNF. (3) Wound of lower extremity: Qualifiers: Encounter type: subsequent encounter Laterality: unspecified laterality Qualified Code(s): S81.809D - Unspecified open wound, unspecified lower leg, subsequent encounter Code(s): S81.809A - Unspecified open wound, unspecified lower leg, initial encounter Status: Acute Assessment and Plan: - Wound care consulted and have determined that the pt. has venous stasis ulcerations and treatment recommendations have been made to continue silver gel to bases, apply vaseline gauze and wrap with kerlix. - Continue current care. (4) Diarrhea: Qualifiers: Diarrhea type: infectious Qualified Code(s): A09 - Infectious gastroenteritis and colitis, unspecified Code(s): R19.7 - Diarrhea, unspecified Status: Acute Assessment and Plan: - + C-diff Colitis. - Stop Flagyl and start Dificid 200 mg po Q12 hours. - Replace Potassium. - Monitor. Additional Plan This pt. will be able to discharge to a SNF once we have acceptance and insurance has OK'd. He can take oral Dificid upon discharge. Appreciate Care Coordination efforts with making arrangements. Time Spent With Patient Time with patient: 15 - 25 minutes Subjective Date/time seen: 09/19/21 0850 This pt. was examined at the bedside today in interval exam of his admission based on his acute hypokalemia, overall weakness and acute C-diff Colitis. The pt. continues to complain of feeling weak, and voices no pain. He remains on Dificid for his C-diff infection and his Potassium has corrected. He is now at 3.4 today. He does continue to have stools, so we will need to monitor his Potassium daily. In addition, he has wounds to his BLE that wound has consulted on and has deemed chronic venous stasis defects in the skin. He is to have his legs elevated with Silver gel applied to wound beds and vaseline gauze with ABD pads and roll gauze to cover. There are no new signs of infection in his legs. I discussed with the patient today the likelihood that he will be discharged this week after placement is found and the OK is given, and he is upset, saying They won't clean me as good and they will not take care of me as well there. Clinically, he is medically stable, and can be discharged to an ECF once one is found, on Dificid. Review of Systems Review of Systems: All systems reviewed & are unremarkable except as noted in HPI and below Exam Narrative: Constitutional: Patient is well-nourished in no acute distress. Patient is alert and oriented x3, and is morbidly obese. HEENT: Moist mucous membranes. No scleral icterus. No lymphadenopathy. Patient does wear an eye patch to his right eye Neck: No carotid bruits noted no JVD noted Lungs: Lung sounds are clear but decreased to auscultation bilaterally. No accessory muscle use. No rhonchi, rales, or wheezes noted. Cardiovascular: Apical pulse is regular rate and rhythm. S1-S2 noted, no S3 or S4 noted. No gallops, murmurs, or rubs noted. Abdomen: Soft, round, and nontender. No palpable masses. Rotund abdomen Extremities: Large amount of swelling noted to patient's BLE without pitting. Wounds are wrapped with kerlix. Skin: Dressing to BLE is C/D/I. No erythema appreciated. Musculoskeletal: Patient has generalized weakness. Neurologi
[2021-09-19] MEDS: ALPRAZolam (*CRX) 0.25 MG TABLET PO ×2 (13:00→20:19)
[2021-09-19] MEDS: ARIPiprazole 2 MG TABLET PO (20:19)
[2021-09-19] MEDS: rOPINIRole HCL 1 MG TABLET PO (20:21)
[2021-09-20] VITALS (7 sets, daily range): BP systolic 91–108; BP diastolic 65–68; PULSE 73–82; RESP 16; TEMP 36.4–36.8; O2SAT 97–100
[2021-09-20] MEDS: MORPHINE SULFATE (*CRX) 15 MG TAB IR 30 MG PO ×2 (02:45→11:39)
[2021-09-20] MEDS: FUROSEMIDE 40 MG TABLET PO (05:40)
[2021-09-20] MEDS: THERAPEUTIC MULTIVITAMINS/MINERALS TAB (*BKC) 1 TABLET PO (08:47)
[2021-09-20] MEDS: POTASSIUM CHLORIDE 10 MEQ TABLET.ER 30 MEQ PO (08:47)
[2021-09-20] MEDS: CHOLECALCIFEROL 1,000 UNITS TABLET 5000 UNITS PO (08:47)
[2021-09-20] MEDS: VENLAFAXINE HCL XR 75 MG CAP.ER.24H 150 MG PO (08:47)
[2021-09-20] MEDS: SPIRONOLACTONE 25 MG TABLET PO (08:47)
[2021-09-20] MEDS: GABAPENTIN 300 MG CAPSULE PO (08:48)
[2021-09-20] MEDS: LORATADINE 10 MG TABLET PO (08:48)
[2021-09-20] MEDS: METOPROLOL SUCCINATE EXT REL 12.5 MG TABCR PO (08:48)
[2021-09-20] MEDS: TIMOLOL MALEATE 0.5% OP SOLN 5 ML BOTTLE 2 DROP EACH EYE (08:48)
[2021-09-20] MEDS: APIXABAN 2.5 MG TABLET PO (08:48)
[2021-09-20] MEDS: BRIMONIDINE TARTRATE 0.2% OP SOLN 5 ML BTL 2 DROP EACH EYE (08:48)
[2021-09-20] MEDS: MORPHINE SULFATE (*CRX) 60 MG TABCR PO (08:48)
[2021-09-20] MEDS: ASPIRIN 81 MG ENTERIC TABLET PO (08:48)
[2021-09-20] MEDS: FIDAXOMICIN 200 MG TABLET PO (08:48)
[2021-09-20] MEDS: SILVERGEL (ELTA) 45 ML 1 APPLIC TOPICAL (08:53)
--- NOTE | 2021-09-20 10:38 | PM.DS ---
DS: Admitting Diagnosis Discharge Date 09/20/2021 Admitting Diagnosis 1) Acute Hypokalemia 2) Generalized weakness 3) Wound of lower extremity 4) Diarrhea DS: Discharge Diagnosis Discharge Diagnosis (1) Acute hypokalemia: Code(s): E87.6 - Hypokalemia Status: Resolved Assessment and Plan: - Resolved. Received supplemental while here and is stable for discharge at this time. - Recommend rechecking potassium in 2-3 days. (2) Generalized weakness: Code(s): R53.1 - Weakness Status: Acute Assessment and Plan: - Case management has been consulted. Unsure how much therapy would be helpful as he has a femur fracture and cannot walk. - Suspicion this will only worsen as pt. is considered bedbound. - OK to discharge to SNF at this time. (3) Wound of lower extremity: Qualifiers: Encounter type: subsequent encounter Laterality: unspecified laterality Qualified Code(s): S81.809D - Unspecified open wound, unspecified lower leg, subsequent encounter Code(s): S81.809A - Unspecified open wound, unspecified lower leg, initial encounter Status: Acute Assessment and Plan: - Wound care consulted and have determined that the pt. has venous stasis ulcerations and treatment recommendations have been made to continue silver gel to bases, apply vaseline gauze and wrap with kerlix daily. - Continue current care at intermediate. (4) Diarrhea: Qualifiers: Diarrhea type: infectious Qualified Code(s): A09 - Infectious gastroenteritis and colitis, unspecified Code(s): R19.7 - Diarrhea, unspecified Status: Acute Assessment and Plan: - + C-diff Colitis. - Continue Dificid as outpatient. - Recommend monitoring BMP in 2-3 days. DS: Summary Hospital Course Reason for hospitalization: Weakness and hypokalemia Hospital Course: This 66 year old male patient with significant PMH of Atrial fib, HTN, MRSA, sarcoidosis of hte lungs, BPH, C-diff, pacemaker, hernia repair, Left total hip arthroscopy, multiple right him surgeries and most recently who sustained a fall and fracture of his right distal femur at [facility] where he was hospitalized for MRSA sepsis, presented to our ER on 09/16/2021 at request of the family who could not take care of him at home. He had recently signed out of [place] where he was residing because he had some financial difficulties and he potentially was going to lose his apartment, so for financial sake signed out and went to live with family who quickly realized they could not care for him as he is bedridden due to his recent femur fracture that is not operative and he was therefore brought to the ER. The pt. does endorse feeling overall very weak and he admits to having intermittent diarrhea from time to time and has had C-diff in the past. He had a Potassium level of 2.2 in ER and he was admitted to the hospital for Potassium correction as well as for treatment of diarrhea and placement. The pt.'s potassium has been corrected to 3.4, and will receive po doses with recommendation to recheck BMP in 2-3 days. In addition, he will continue to be treated with Dificid po for his C-diff colitis. The pt. has been stable and at his new baseline since his fracture. He has been accepted at [facility] and is stable for discharge at this time. Status at Discharge Functional status at discharge: bed bound Overall status at discharge: other (Pt. is at his baseline level of functioning both mentally and physically.) Time Spent with Patient Time attestation: Total time spent providing and/or coordinating discharge services: 40 minutes Time spent: Greater than 30 minutes Exam Narrative: Constitutional: Patient is well-nourished in no acute distress. Patient is alert and oriented x3, and is morbidly obese. HEENT: Moist mucous membranes. No scleral icterus. No lymphadenopathy. Patient does wear an eye patch to his right eye Neck: No carotid bruits
[2021-09-20 12:58] LABS: EDCOVIDSCREEN Negative (Negative)
[2021-09-20] MEDS: ALPRAZolam (*CRX) 0.25 MG TABLET PO (13:59)
[2021-09-21 19:42] LABS: Rotavirus Stool Not Detected
[2021-09-23 17:39] LABS: Norovirus RNA PCR, Stool NOT DETECTED
== END 2021-09-20 16:46 | DRG 372 ==
LOC: ANHED 16:10 → ANH2MED 17:38
PROVIDERS: Internal Medicine; Nurse Practitioner Adult Health; Admitting Provider Family Medicine; Emergency Provider Emergency Medicine; Visit Provider Nurse Practitioner Adult Health
DX: A04.72 Enterocolitis due to Clostridium difficile, not specified as recurrent (principal); L97.829 Non-pressure chronic ulcer of other part of left lower leg with unspecified severity; L97.819 Non-pressure chronic ulcer of other part of right lower leg with unspecified severity; E87.6 Hypokalemia; Z20.822 Contact with and (suspected) exposure to COVID-19; I10 Essential (primary) hypertension; I48.91 Unspecified atrial fibrillation; N40.0 Benign prostatic hyperplasia without lower urinary tract symptoms; Z96.642 Presence of left artificial hip joint; D86.0 Sarcoidosis of lung; I87.2 Venous insufficiency (chronic) (peripheral); E66.01 Morbid (severe) obesity due to excess calories; Z68.31 Body mass index [BMI] 31.0-31.9, adult; Z95.0 Presence of cardiac pacemaker; S72.401D Unspecified fracture of lower end of right femur, subsequent encounter for closed fracture with routine healing; W19.XXXD Unspecified fall, subsequent encounter
CPT/HCPCS: 36415; 80048; 80053; 81001; 82948; 83735; 84132; 85025; 87045; 87269; 87272; 87425; 87426; 87427; 87493; 87798; 93005; 96361; 96365; 96366; 96368; 96372; 99285; A9270; C9803; G0378; J1650; J3475; J3480; J7040; J7120

== ENCOUNTER 2021-09-22 04:31 | Emergency (ER) | payer MEDICARE, MEDICAID, SELFPAY ==
--- NOTE | ~2021-09-22 | XR_ITS ---
EXAMINATION: XR tibia fibula RT 2V DATE: 09/22/2021 06:28 INDICATION: Right lower leg pain. TECHNIQUE: 2 views of right tibia and fibula on 4 radiographs were obtained. COMPARISON: Right tibia and fibular radiographs 03/01/2016 FINDINGS: Bone alignment is normal. There is periosteal reaction of distal fibula. There is diffuse o steopenia. There is severe right knee osteoarthritis. There is a small knee joint effusion. There is ankle soft tissue swelling. IMPRESSION: 1. Periosteal reaction of distal fibula, which may be secondary to a healing fracture or venous stasi s. 2. Severe right knee osteoarthritis. 3. Small right knee joint effusion. Reviewed, dictated and finalized at location A. IMPRESSION: 1. Periosteal reaction of distal fibula, which may be secondary to a healing fr acture or venous stasis. 2. Severe right knee osteoarthritis. 3. Small right knee joint effusion.
--- NOTE | ~2021-09-22 | XR_ITS ---
EXAMINATION: XR femur RT min 2V DATE: 09/22/2021 06:28 INDICATION: Right femur fracture. TECHNIQUE: 2 views of right femur on 4 radiographs were obtained. COMPARISON: Pelvis radiograph 01/05/2009 FINDINGS: The total right hip arthroplasty has been removed. There is an old displaced ununited fract ure of proximal right femur. Osteopenia is noted. There is a pseudarthrosis in the expected area of r ight hip joint. There is severe right knee osteoarthritis. There is a small right knee joint effusion . IMPRESSION: 1. Old displaced ununited fracture of proximal right femur and pseudarthrosis in the expected area of right hip joint status post arthroplasty removal. 2. Severe right knee osteoarthritis. 3. Small right knee joint effusion. Reviewed, dictated and finalized at location A. IMPRESSION: 1. Old displaced ununited fracture of proximal right femur and pseudarthrosis i n the expected area of right hip joint status post arthroplasty removal. 2. Severe right knee osteoarthritis. 3. Small right knee joint effusion.
--- NOTE | ~2021-09-22 | XR_ITS ---
EXAMINATION: XR chest 1V portable DATE: 09/22/2021 06:28 INDICATION: Chills. Weakness. TECHNIQUE: A single frontal view of the chest was obtained. COMPARISON: Chest 2 views 03/26/2016, chest CT 12/20/2012 FINDINGS: The patient is rotated to his left. There are airspace opacities in the perihilar regions. There is enlargement of the jorge a bilaterally. There is right-sided pleural thickening versus small pl eural effusion. No pneumothorax. Cardiomegaly is noted. There is a left chest pacer lead in right misti tricle. IMPRESSION: 1. Airspace opacities in the perihilar regions, consistent with atelectasis versus pneumonia versus m ild pulmonary edema. 2. Chronic enlargement of the bilateral jorge a, likely lymphadenopathy consistent with sarcoid. 3. Small right pleural effusion versus pleural thickening. 4. Cardiomegaly. Reviewed, dictated and finalized at location A. IMPRESSION: 1. Airspace opacities in the perihilar regions, consistent with atelectasis salena sandra pneumonia versus mild pulmonary edema. 2. Chronic enlargement of the bilateral jorge a, likely lymphadenopathy consistent with sarcoid. 3. Small right pleural effusion versus pleural thickening. 4. Cardiomegaly.
[2021-09-22 04:31] VITALS: BP 115/73; PULSE 80; RESP 14; O2SAT 100
--- NOTE | 2021-09-22 05:01 | ECG_ITS ---
Measurements Intervals [place] Rate: 76 P: DC: 0 QRS: 25 QRSD: 154 T: 179 QT: 438 QTc: 494 Interpretive Statements ELECTRONIC VENTRICULAR PACEMAKER ABNORMAL RHYTHM ECG COMPARED TO ECG 09/16/2021 14:49:02 NO SIGNIFICANT CHANGES Electronically Signed On 09-22-2021 14:21:32 CDT by Ese Dolan M.D.
--- NOTE | 2021-09-22 05:15 | ED.GENADULT ---
HPI - General Adult General Chief complaint: Wound/Laceration Stated complaint: leg pain - open wounds Source: patient Mode of arrival: EMS Limitations: no limitations History of Present Illness HPI narrative: This is a 66 year old male with history of CHF, DM, chronic venous stasis who presents from retirement for right leg pain. Patient states he suffered a femur fracture 6 weeks ago . He was not a surgical candidate so he was eventually sent to a retirement. Patient was in a retirement for 2 weeks and then he was was discharge home. PAtient was brought to [facility] last week because patient was unable to care for himself. He was admitted and treated for hypokalemia while he was getting placement. Patient was discharged to group home on 09/20/21. Patient has been getting wound care for his lower extremity wounds. PAtient states he has not received his pain medication in 48 hours for right leg pain. PAtient also states he has been having chills and sweats and he is concerned he has an infection. He denies chest pain, vomiting or shortness of breath. HE denies abdominal pain. He was evaluated by wound care during his last hospitalization and his wounds are not infected. Related Data Home Medications Medication Instructions Recorded Confirmed Eliquis 2.5 mg PO BID 09/17/21 09/17/21 acetaminophen [Pain Relief 650 mg PO Q4H PRN 09/17/21 09/17/21 (acetaminophen)] aripiprazole 2 mg PO HS 09/17/21 09/17/21 aspirin [Aspirin Low Dose] 81 mg PO DAILY 09/17/21 09/17/21 benzonatate 100 mg PO BID PRN 09/17/21 09/17/21 brimonidine 2 drp EACH EYE BID 09/17/21 09/17/21 cholecalciferol (vitamin D3) 125 mcg PO DAILY 09/17/21 09/17/21 diphenhydramine HCl 25 mg PO TID PRN 09/17/21 09/17/21 docusate sodium [Colace] 200 mg PO BID PRN 09/17/21 09/17/21 ferrous sulfate 325 mg PO EVERY OTHER DAY 09/17/21 09/17/21 fluticasone propionate 1 spray INTRANASAL BID 09/17/21 09/17/21 furosemide 40 mg PO 0600 09/17/21 09/17/21 gabapentin [Neurontin] 300 mg PO HS 09/17/21 09/17/21 gentamicin 1 applic TOPICAL 3XW 09/17/21 09/17/21 ipratropium-albuterol 3 ml INHALATION QID 09/17/21 09/17/21 lidocaine 1 applic TOPICAL DAILY PRN 09/17/21 09/17/21 lidocaine HCl [Glydo] 5 ml TOPICAL 3XW 09/17/21 09/17/21 loperamide 4 mg PO Q4H PRN 09/17/21 09/17/21 loratadine 10 mg PO DAILY 09/17/21 09/17/21 metoprolol succinate 12.5 mg PO DAILY 09/17/21 09/17/21 morphine 60 mg PO Q12H 09/17/21 09/17/21 multivitamin,tx-minerals 1 tablet PO BID 09/17/21 09/17/21 nitroglycerin 0.4 mg SUBLINGUAL Q5M PRN 09/17/21 09/17/21 potassium chloride [Klor-Con 10] 30 meq PO DAILY 09/17/21 09/17/21 ropinirole 1 mg PO HS 09/17/21 09/17/21 spironolactone 25 mg PO DAILY 09/17/21 09/17/21 timolol maleate 2 drp EACH EYE BID 09/17/21 09/17/21 venlafaxine 150 mg PO DAILY 09/17/21 09/17/21 Allergies Allergy/AdvReac Type Severity Reaction Status Date / Time vancomycin Allergy Severe Sweating Verified 09/22/21 04:46 povidone Allergy Intermediate BETADINE Verified 09/22/21 04:46 OINTMENT CAUSES BLISTERS ON THE SKIN meperidine [From Demerol] Allergy Unknown Unknown Verified 09/22/21 04:46 Review of Systems Review of Systems: All systems reviewed & are unremarkable except as noted in HPI and below Constitutional: Constitutional: Reports chills and Denies fever(s) Cardiovascular: Cardiovascular: Denies chest pain Respiratory: Respiratory: Denies chest congestion, Reports cough and Denies dyspnea Gastrointestinal: Gastrointestinal: Denies abdominal pain, Denies diarrhea, Denies nausea and Denies vomiting Musculoskeletal: Comments: chronic right leg pain Integumentary/Breasts: Skin/Breast: Reports skin ulcer PMFSH Past Medical History Medical History Atrial fibrillation Benign prostatic hyperplasia Clostridium difficile infection Hypertension MRSA bacteremia Sarcoidosis of lung Surgical History Surgical
[2021-09-22 05:36] LABS: Basophils Absolute Auto 0.1 K/mm3 (0.0-0.1); Basophils Percent Auto 1.6 % (0.2-1.2); Eosinophils Absolute Auto 0.1 K/mm3 (0-0.3); Eosinophils Percent Auto 3.2 % (0-4.4); Hematocrit 34.4 % (42.0-52.0); Hemoglobin 11.2 g/dL (14.0-18.0); Immature Granulocyte Absolute 0.01 K/mm3 (0.00-0.031); Immature Granulocyte Percent A 0.3 % (0-0.5); Lymphocytes Absolute Auto 0.34 K/mm3 (0.9-3.2); Lymphocytes Percent Auto 9.1 % (18.3-44.2); Mean Corpuscular HGB Conc 32.6 g/dl (32-36); Mean Corpuscular Hemoglobin 32.2 pg (26-34); Mean Corpuscular Volume 98.9 fl (80-100); Mean Platelet Volume 8.3 fl (7.4-10.4); Monocytes Absolute Auto 0.2 K/mm3 (0.1-0.6); Monocytes Percent Auto 6.2 % (2.6-8.5); Neutrophils Percent Auto 79.6 % (45.5-73.1); Platelet Count Result 162 k/mm3 (150-375); Red Blood Count 3.48 M/mm3 (4.6-6.20); Red Cell Distribution Width 14.5 % (11.5-14.5); White Blood Count 3.7 K/mm3 (4.5-10.0)
[2021-09-22 05:47] LABS: Add Urine Microscopic? YES; Appearance Urine Clear (Clear); Bacteria Urine Trace /hpf; Bilirubin Urine Negative (Negative); Blood Urine Negative (Negative); Color Urine Yellow (Yellow); Glucose Urine UA Negative (Negative); Ketones Urine Negative (Negative); Leukocyte Esterase Ur Negative LEU/UL (Negative); Nitrate Urine Negative (Negative); Protein Urine Negative (Negative); RBC Urine 0-2 /hpf (0-2); Specific Grav Ur 1.014 (1.001-1.035); Squamous Epithelial Cell Urine Rare /hpf (Few); WBC Urine 0-3 /hpf
[2021-09-22 05:52] LABS: Alanine Aminotransferase 11 U/L (4-50); Albumin Level 3.5 g/dL (3.5-5.1); Alkaline Phosphatase 75 U/L (38-126); Anion Gap 6 mmol/L (8-16); Aspartate Amino Transferase 29 U/L (17-59); Bilirubin,Total 1.1 mg/dL (0.2-1.3); Blood Urea Nitrogen 11 mg/dL (9-20); Calcium 8.6 mg/dL (8.4-10.2); Carbon Dioxide 30 mmol/L (22-30); Chloride 101 mmol/L (98-107); Estimated Glomerular Filt Rate > 60; Glucose 111 mg/dL (65-110); Potassium 2.9 mmol/L (3.4-5.0); Sodium 137 mmol/L (137-145)
[2021-09-22 06:30] VITALS: BP 113/73; PULSE 79; RESP 16; O2SAT 97
--- NOTE | 2021-09-22 06:57 | PC.NURSE ---
Addendum entered by Wei Kovacs RN 09/22/21 07:01: Katia states that he has all of his medications except his narcotics. Narcotics are expected to arrive today at 08:00. ROMULO Raza made aware. Original Note: Handoff given to Katia nurse to [facility].
[2021-09-22] MEDS: FIDAXOMICIN 200 MG TABLET PO (07:05)
[2021-09-22] MEDS: POTASSIUM CHLORIDE 20 MEQ TABLET 40 MEQ PO (07:06)
[2021-09-22 07:53] VITALS: BP 112/67; PULSE 74; RESP 16; O2SAT 97
[2021-09-22 08:40] VITALS: BP 120/60; PULSE 64; RESP 16; O2SAT 98
[2021-09-22] MEDS: MORPHINE SULFATE (*CRX) 15 MG TAB IR 30 MG PO (09:32)
== END 2021-09-22 10:30 ==
PROVIDERS: Emergency Provider General Practice
DX: E87.6 Hypokalemia (principal); M79.604 Pain in right leg; I48.91 Unspecified atrial fibrillation; N40.0 Benign prostatic hyperplasia without lower urinary tract symptoms; I10 Essential (primary) hypertension
CPT/HCPCS: 36415; 71045; 73552; 73590; 80053; 81001; 85025; 93005; 99284; A9270

== ENCOUNTER 2021-11-10 17:33 | Emergency (ER) | payer MEDICARE, MEDICAID, SELFPAY ==
[2021-11-10] VITALS (8 sets, daily range): BP systolic 99–132; BP diastolic 70–84; PULSE 79–96; RESP 12–20; TEMP 36.8; O2SAT 95–100
[2021-11-10 18:16] LABS: Alanine Aminotransferase 12 U/L (6-50); Albumin Level 3.8 g/dL (3.5-5.1); Alkaline Phosphatase 68 U/L (38-126); Anion Gap 11 mmol/L (8-16); Aspartate Amino Transferase 30 U/L (17-59); Blood Urea Nitrogen 12 mg/dL (9-20); Calcium 8.6 mg/dL (8.4-10.2); Carbon Dioxide 30 mmol/L (22-30); Chloride 92 mmol/L (98-107); Estimated CRCL calculation 68 ml/min; Estimated Glomerular Filt Rate > 60; Glucose 95 mg/dL (65-110); Potassium 2.9 mmol/L (3.4-5.0); Sodium 133 mmol/L (137-145)
--- NOTE | 2021-11-10 18:53 | ECG_ITS ---
Measurements Intervals [place] Rate: 83 P: FL: 0 QRS: 46 QRSD: 161 T: 204 QT: 427 QTc: 503 Interpretive Statements ATRIAL SENSE- ELECTRONIC VENTRICULAR PACEMAKER BASELINE ARTIFACT- I, II, III, AVR, AVL, AVF, V1, V4-V6 NO FURTHER INTERPRETATION IS POSSIBLE ATYPICAL ECG Electronically Signed On 11-10-2021 19:02:32 CDT by Dax Freeman D.O.
--- NOTE | 2021-11-10 19:48 | ED.RECABL ---
HPI - Recheck/Abnormal Lab/Rx General Chief Complaint: Recheck/Abnormal Lab/Rx Stated Complaint: abnormal labs Time Seen by Provider: 11/10/21 19:19 History of Present Illness HPI narrative: Patient is a 66-year-old male sent here from the assisted due to low potassium. Patient has no symptoms at this time. Patient was seen here previously for low potassium. Patient denies any chest pain, shortness of breath, abdominal pain, nausea, vomiting, diarrhea, fever or chills. Related Data Home Medications Medication Instructions Recorded Confirmed acetaminophen 325 mg tablet (Pain 650 mg PO Q4H PRN Fever 09/17/21 11/09/21 Relief (acetaminophen)) apixaban 2.5 mg tablet (Eliquis) 2.5 mg PO BID 09/17/21 11/09/21 aripiprazole 2 mg tablet 2 mg PO HS 09/17/21 11/09/21 aspirin 81 mg tablet,delayed 81 mg PO DAILY 09/17/21 11/09/21 release (Aspirin Low Dose) benzonatate 100 mg capsule 100 mg PO BID PRN Cough 09/17/21 11/09/21 brimonidine 0.2 % eye drops 2 drp EACH EYE BID 09/17/21 11/09/21 cholecalciferol (vitamin D3) 125 125 mcg PO DAILY 09/17/21 11/09/21 mcg (5,000 unit) tablet diphenhydramine HCl 25 mg capsule 25 mg PO TID PRN Allergy Symptoms 09/17/21 11/09/21 docusate sodium 100 mg capsule 200 mg PO BID PRN Constipation 09/17/21 11/09/21 (Colace) ferrous sulfate 325 mg (65 mg 325 mg PO EVERY OTHER DAY 09/17/21 11/09/21 iron) tablet fluticasone propionate 50 1 spray intranasal BID 09/17/21 11/09/21 mcg/actuation nasal spray,suspension furosemide 20 mg tablet 40 mg PO 0600 09/17/21 11/09/21 gabapentin 300 mg capsule 300 mg PO HS 09/17/21 11/09/21 (Neurontin) gentamicin 0.1 % topical ointment 1 applic topical 3XW 09/17/21 11/09/21 ipratropium 0.5 mg-albuterol 3 mg 3 ml inhalation QID 09/17/21 11/09/21 (2.5 mg base)/3 mL nebulization soln lidocaine 5 % topical ointment 1 applic topical DAILY PRN Wound 09/17/21 11/09/21 Care lidocaine HCl 2 % mucosal jelly in 5 ml topical 3XW 09/17/21 11/09/21 applicator (Glydo) loperamide 2 mg capsule 4 mg PO Q4H PRN Loose Stool 09/17/21 11/09/21 loratadine 10 mg tablet 10 mg PO DAILY 09/17/21 11/09/21 metoprolol succinate 25 mg 12.5 mg PO DAILY 09/17/21 11/09/21 tablet,extended release 24 hr morphine 30 mg tablet,extended 60 mg PO Q12H 09/17/21 11/09/21 release multivitamin,tx-minerals 1 tablet PO BID 09/17/21 11/09/21 nitroglycerin 0.4 mg sublingual 0.4 mg sublingual Q5M PRN Chest 09/17/21 11/09/21 tablet Pain potassium chloride 10 mEq 30 meq PO DAILY 09/17/21 11/09/21 tablet,extended release (Klor-Con) ropinirole 1 mg tablet 1 mg PO HS 09/17/21 11/09/21 spironolactone 25 mg tablet 25 mg PO DAILY 09/17/21 11/09/21 timolol maleate 0.5 % eye drops 2 drp EACH EYE BID 09/17/21 11/09/21 venlafaxine 150 mg 150 mg PO DAILY 09/17/21 11/09/21 capsule,extended release 24 hr Allergies Allergy/AdvReac Type Severity Reaction Status Date / Time vancomycin Allergy Severe Sweating Verified 11/10/21 18:51 povidone Allergy Intermediate BETADINE Verified 11/10/21 18:51 OINTMENT CAUSES BLISTERS ON THE SKIN meperidine [From Demerol] Allergy Unknown Unknown Verified 11/10/21 18:51 Review of Systems Review of Systems: All systems reviewed & are unremarkable except as noted in HPI and below Constitutional: Constitutional: Denies body ache(s), Denies chills, Denies excessive sweating, Denies fatigue, Denies fever(s), Denies headache(s), Denies lethargy, Denies malaise, Denies weakness and Denies weight loss Eyes: Eyes: Denies blurry vision, Denies change in vision and Denies loss of vision ENT: Denies dizziness, Denies ear discharge, Denies headache(s), Denies lip swelling, Denies epistaxis, Denies nasal congestion, Denies neck pain, Denies throat swelling and Denies tongue swelling Cardiovascular: Cardiovascular: Denies chest pain, Denies chest pain at rest, Denies chest pain with activity, Denies diaphoresis, Denies rapid heart rate, Denies edema, Denie
[2021-11-10] MEDS: HYDROcodone/acetaminophen (*CRX) 7.5-325 MG TABLET 1 TAB PO (20:13)
[2021-11-10] MEDS: POTASSIUM CHLORIDE 20 MEQ PACKET (FOR LIQUID) 40 MEQ PO (20:13)
[2021-11-10] MEDS: MORPHINE SULFATE (*CRX) 2 MG/ML INJ IV PUSH (20:57)
[2021-11-10] MEDS: MAGNESIUM OXIDE 400 MG TABLET PO (21:00)
== END 2021-11-10 22:05 ==
PROVIDERS: Emergency Medicine; Emergency Provider Emergency Medicine; PCP Internal Medicine
DX: E87.6 Hypokalemia (principal); L89.301 Pressure ulcer of unspecified buttock, stage 1; I48.91 Unspecified atrial fibrillation; N40.0 Benign prostatic hyperplasia without lower urinary tract symptoms; I10 Essential (primary) hypertension; Z86.14 Personal history of Methicillin resistant Staphylococcus aureus infection; Z96.642 Presence of left artificial hip joint; Z95.0 Presence of cardiac pacemaker
CPT/HCPCS: 36415; 80053; 93005; 96374; 99284; A9270; J2270

== ENCOUNTER → 2022-07-06 11:11 | Outpatient (CLI) | payer MEDICARE, MEDICAID, SELFPAY ==
--- NOTE | ~2022-07-06 | XR_ITS ---
AP view of the pelvis and AP and lateral views of the bilateral hips Clinical history: Pain COMPARISON: 09/22/2021 Findings: No acute fracture or dislocation is seen. Extensive chronic destructive change or surgical absence of the right femoral head is noted. Large area of heterotopic ossification just lateral to th e right hip joint is unchanged. Left hip arthroplasty is in place. Heterotopic ossification is presen t about the greater trochanteric region. There is a suspected acute fracture through the subtrochante bonnie proximal left femoral shaft, with minimal displacement. Soft tissues are unremarkable. Impression: Suspected acute, minimally displaced fracture of the left subtrochanteric femur. Left hip arthroplasty hardware is present, essentially unchanged since 01/05/2009. Complete surgical absence or destructive change of the right humeral head, stable from 09/22/2021. 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 Reviewed, dictated and finalized at [facility]. [employer] Impression: Suspected acute, minimally displaced fracture of the left subtrochanteric femur . Left hip arthroplasty hardware is present, essentially unchanged since 9. Complete surgical absence or destructive change of the right humeral head, stab le from 09/22/2021. 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
--- NOTE | ~2022-07-06 | XR_ITS ---
Lumbosacral Spine: AP and lateral views Clinical History: Pain Findings: The normal lordotic curve is maintained. The vertebral bodies and posterior elements are i ntact. The intervertebral disc spaces are preserved. Facet joint degenerative changes are present fr om L4 through S1. The sacroiliac joints are normally outlined. Impression: Facet joint degenerative changes at the lower lumbar spine. Reviewed, dictated and finalized at location . [employer] Impression: Facet joint degenerative changes at the lower lumbar spine.
== END ==
PROVIDERS: PCP Physician Assistant; Visit Provider Nurse Practitioner Family
DX: M54.59 Other low back pain (principal); M25.551 Pain in right hip; M25.552 Pain in left hip
CPT/HCPCS: 72100; 73521